=== PATIENT | female | born 1940 | race Caucasian/White ===

== ENCOUNTER 2018-11-18 10:50 | Emergency (ER) | payer MEDICARE ==
--- NOTE | 2018-11-18 11:55 | ERPHSYRPT ---
- History of Present Illness Time Seen by Provider: 11/18/18 11:53 Source: patient, family Exam Limitations: no limitations Patient Subjective Stated Complaint: states was going up steps into house yesterday and fell injuring right knee and right elbow. states pain radiates down into lower right leg. Triage Nursing Assessment: to room per w/c. skin w/d, color normal, resp easy. patient unable to bear weight on right leg. assisted to cot. good pedal pulse and right foot warm. no deformity of knee noted. Physician History: states was going up steps into house yesterday and fell injuring right knee and right elbow. states pain radiates down into lower right leg. Method of Injury: fell Occurred: yesterday Quality: constant Lower Extremities Pain: knee: right Modifying Factors: Improves With: nothing Associated Symptoms: none Allergies/Adverse Reactions: codeine Allergy (Verified 11/18/18 11:28) Penicillins Allergy (Verified 11/18/18 11:28) steriods Allergy (Uncoded 07/07/15 15:48) Home Medications: Amlodipine Besylate 5 mg [Norvasc 5 mg] 5 mg PO DAILY 08/12/13 [History] Ferrous Sulfate 325 mg PO DAILY 08/12/13 [History] Levothyroxine Sodium 25 Mcg [Synthroid 25 Mcg] 25 mcg PO DAILY 08/12/13 [ History] Nebivolol HCl 5 MG [Bystolic 5 MG] 5 mg PO DAILY 08/12/13 [History] Potassium Chloride [Klor-Con M10] 20 meq PO DAILY 08/12/13 [History] Sertraline HCl 100 mg [Zoloft 100 MG] 100 mg PO DAILY 08/12/13 [History] Omeprazole 20 MG [Prilosec 20 mg] 20 mg PO DAILY 04/29/14 [History] clonazePAM [Clonazepam] 0.25 mg PO DAILY 04/29/14 [History] Oxybutynin Chloride Xl 5 mg [Ditropan XL 5 MG] 5 mg PO BID 09/25/14 [ History] Multivit-Min/Iron/Folic/Vit K1 [Centrum Chewable Tablet] 1 each PO DAILY [History] Losartan Potassium 50 mg PO DAILY 08/03/16 [History] Hx Tetanus, Diphtheria Vaccination/Date Given: No Hx Influenza Vaccination/Date Given: Yes Hx Pneumococcal Vaccination/Date Given: Yes - Review of Systems Constitutional: No Symptoms Eyes: No Symptoms Ears, Nose, & Throat: No Symptoms Respiratory: No Symptoms Cardiac: No Symptoms Abdominal/Gastrointestinal: No Symptoms Genitourinary Symptoms: No Symptoms Musculoskeletal: Joint Pain (right knee) - Past Medical History Pertinent Past Medical History: Yes Neurological History: No Pertinent History ENT History: Cataracts Cardiac History: High Cholesterol, Hypertension, Other Respiratory History: No Pertinent History Endocrine Medical History: Hypothyroidism Musculoskeletal History: No Pertinent History GI Medical History: GERD, Other History: No Pertinent History Psycho-Social History: Anxiety Female Reproductive Disorders: No Pertinent History Other Medical History: tongue cancer with chemo - Past Surgical History Past Surgical History: Yes Neuro Surgical History: No Pertinent History Cardiac: No Pertinent History Respiratory: No Pertinent History Gastrointestinal: No Pertinent History Genitourinary: No Pertinent History Musculoskeletal: No Pertinent History Female Surgical History: Hysterectomy Other Surgical History: iud, uterus removed. tongue cancer with bx. port placement - Social History Smoking Status: Never smoker Exposure to second hand smoke: No Drug Use: none Patient Lives Alone: Yes - Nursing Vital Signs Nursing Vital Signs: Initial Vital Signs Temperature 97.4 F 11/18/18 11:05 Pulse Rate 71 11/18/18 11:05 Respiratory Rate 18 11/18/18 11:05 Blood Pressure 158/78 11/18/18 11:05 O2 Sat by Pulse Oximetry 94 L 11/18/18 11:05 Pain Scale Pain Intensity 10 - Physical Exam General Appearance: no apparent distress Eyes, Ears, Nose, Throat Exam: normal ENT inspection Neck Exam: normal inspection Cardiovascular/Respiratory Exam: chest non-tender Gastrointestinal/Abdominal Exam: non-tender Knees Exam: right knee: normal range of motion, pain, soft tissue tenderness DTR - Lower Extremities Exam: knee (R): 2+, knee (L): 2+, ankle (R): 2+, ankle ( L): 2+ Neuro/Tendon Exam: normal sensation, normal motor functions, normal tendon functions, responds to pain Mental Status Exam: alert, oriented x 3 Skin Exam: normal color SpO2: 94 - Course Nursing assessment & vital signs reviewed: Yes - Radiology Exams Knee X-ray Interpretation: Reviewed by me, Negative, No Fracture Ordered Tests: Active Orders 24 hr Category Date Time Status KNEE (3 VIEWS) Stat Exams 11/18/18 11:03 Taken Medication Summary Discontinued Medications Generic Name Dose Route Start Last Admin Trade Name T[place] PRN Reason Stop Dose Admin Ketorolac Tromethamine 60 mg 11/18/18 12:14 Toradol 30 Mg Injection IM 11/18/18 12:15 STAT ONE - Progress Progress: improved, pain not gone completely Counseled pt/family regarding: diagnosis, need for follow-up, rad results - Departure Departure Disposition: Home Clinical Impression: Incontinence in female Knee joint pain Qualifiers: Laterality: right Qualified Code(s): M25.561 - Pain in right knee Condition: Stable Critical Care Time: No Referrals: KASIE CARUSO MD [Primary Care Provider] - Instructions: Preventing Falls, Contusion (DC), Chronic Knee Pain (DC), Knee Pain (DC), Osteoarthritis, Urinary Incontinence, Urinary Incontinence, Female ( DC), Pelvic Floor Exercises, How to Do Kegel Exercises, Pelvic Muscle (Kegel) Exercises Additional Instructions: Discharge/Care Plan LARRYHECTOR JASMEET was seen on 11/18/18 in the Emergency Room. The patient was counseled regarding Diagnosis,Lab results, Imaging studies, need for follow up and when to return to the Emergency Room. Prescriptions given: Discharge Note I have spoken with the patient and/or caregivers. I have explained the patient' s condition, diagnosis and treatment plan based on the information available to me at this time. I have answered the patient's and/or caregiver's questions and addressed any concerns. The patient and/or caregivers have as good understanding of the patient's diagnosis, condition and treatment plan as can be expected at this point. The vital signs have been stable. The patient's condition is stable and appropriate for discharge from the emergency department. The patient will pursue further outpatient evaluation with the primary care physician or other designated or consulting physician as outlined in the discharge instructions. The patient and/or caregivers are agreeable to this plan of care and follow-up instructions have been explained in detail. The patient and/or caregivers have received these instruction. The patient/and or caregivers are aware that any significant change in condition or worsening of symptoms should prompt an immediate return to this or the closest emergency department or call 911. Prescriptions: Mirabegron [Myrbetriq] 25 mg PO DAILY #30 tab.er.24h Naproxen 375 mg [Naprosyn 375 mg] 375 mg PO Q8H #30 tablet
[2018-11-18] MEDS ORDERED: TORAdol 30 mg Injection IM ONE (12:14)
[2018-11-18] MEDS ORDERED: TORAdol 30 mg Injection ONE (12:25)
[2018-11-18 12:56] VITALS: BP 176/66; PULSE 67; O2SAT 96
--- NOTE | 2018-11-18 20:43 | XRAY ---
Indication: Pain following fall. Comparison: None 3 views of the right knee demonstrates mild/moderate tricompartmental degenerative changes, greatest medial compartment. No other bony, articular, or soft tissue abnormalities.
== END 2018-11-18 12:56 | disposition home or self-care (01) ==
LOC: ED 10:50
DX: M25.561 Pain in right knee (principal); R32 Unspecified urinary incontinence; W10.8XXA Fall (on) (from) other stairs and steps, initial encounter; Z79.899 Other long term (current) drug therapy
CPT/HCPCS: 73562; 96372; 99284; J1885